=== PATIENT | female | born 1945 | race Caucasian/White ===

== ENCOUNTER 2019-08-05 16:57 | Emergency (ER) | payer MEDICARE, OTHER ==
--- NOTE | 2019-08-05 17:54 | EDM.PDOC ---
ED HPI GENERAL MEDICAL PROBLEM - General Chief Complaint: General Stated Complaint: FALL/WRIST PAIN Time Seen by Provider: 08/05/19 17:54 Source of Information: Reports: Patient History Limitations: Reports: No Limitations - History of Present Illness INITIAL COMMENTS - FREE TEXT/NARRATIVE: This patient is a 73 year old female that presents to the ER. Patient reports prior to arrival she tripped and fell backwards on her left wrist. Patient reports left wrist pain. Patient denies hitting head, loc, n, vision changes, or any other pain complaints. Onset: Today Onset Date: 08/05/19 Duration: Hour(s): (1) Location: Reports: Upper Extremity, Left Front/Back Body Image: 1 - obvious deromity Severity: Moderate Improves with: Reports: None Worsens with: Reports: None Context: Reports: Trauma Associated Symptoms: Denies: Confusion - Related Data Allergies Allergy/AdvReac Type Severity Reaction Status Date / Time aspirin Allergy Stomach Verified 08/05/19 17:28 Ache butorphanol [From Stadol] Allergy Tachycardia Verified 08/05/19 17:28 Cephalosporins Allergy Hives Verified 08/05/19 17:55 ciprofloxacin [From Cipro] Allergy Hives Verified 08/05/19 17:28 codeine Allergy Tachycardia Verified 08/05/19 17:28 ketorolac [From Toradol] Allergy Tachycardia Verified 08/05/19 17:28 meperidine [From Demerol] Allergy Stomach Verified 08/05/19 17:28 Ache Opioids - Morphine Analogues Allergy Stomach Verified 08/05/19 17:28 Upset opium (anthroposophic) Allergy Hives Verified 08/05/19 17:55 Penicillins Allergy Hives Verified 08/05/19 17:28 Quinolones Allergy Hives Verified 08/05/19 17:55 salicylates Allergy Hives Verified 08/05/19 17:55 Home Meds: Home Meds Azithromycin 500 mg PO ASDIRECTED 08/05/19 [History] Butalb/Acetaminophen/Caffeine [Tomosh-Vaayzzhy-Hjec 50-300-40] 1 each PO DAILY PRN 08/05/19 [History] Cyclobenzaprine [Flexeril] 10 mg PO DAILY PRN 08/05/19 [History] Levothyroxine 75 mcg PO ACBREAKFAST 08/05/19 [History] Losartan [Cozaar] 25 mg PO DAILY 08/05/19 [History] Omeprazole Magnesium [Prilosec Otc] 20 mg PO BID 08/05/19 [History] Sucralfate 1 gm PO QID 08/05/19 [History] Sulfamethoxazole/Trimethoprim [Bactrim Ds Tablet] 1 tab PO ASDIRECTED 08/05/19 [ History] azaTHIOprine [Imuran] 50 mg PO BID 08/05/19 [History] predniSONE [Prednisone] 25 mg PO DAILY 08/05/19 [History] Past Medical History Cardiovascular History: Reports: Hypertension Musculoskeletal History: Reports: RA Neurological History: Reports: Migraines Endocrine/Metabolic History: Reports: Hypothyroidism Social & Family History - Tobacco Use Smoking Status *Q: Former Smoker Used Tobacco, but Quit: Yes Month/Year Tobacco Last Used: 42 - Caffeine Use Caffeine Use: Reports: Coffee - Recreational Drug Use Recreational Drug Use: No ED ROS GENERAL - Review of Systems Review Of Systems: See Below Constitutional: Reports: No Symptoms HEENT: Reports: No Symptoms Respiratory: Reports: No Symptoms Cardiovascular: Reports: No Symptoms GI/Abdominal: Reports: No Symptoms. Denies: Nausea, Vomiting Musculoskeletal: Reports: Joint Pain (left wrist) Skin: Reports: No Symptoms Neurological: Reports: No Symptoms ED EXAM, GENERAL - Physical Exam Exam: See Below Exam Limited By: No Limitations General Appearance: Alert, WD/WN, No Apparent Distress Respiratory/Chest: No Respiratory Distress, Lungs Clear, Normal Breath Sounds, No Accessory Muscle Use Cardiovascular: Normal Peripheral Pulses, Regular Rate, Rhythm, No Edema, No Gallop, No JVD, No Murmur, No Rub Peripheral Pulses: 2+: Radial (L), Radial (R) Extremities: Limited Range of Motion (left wrist), Other (left wrist deformity, pain, tenderness, swelling. Decreased ROM due to pain. Pulses +2, cap refill <2 sec, sensory intact. Neurovascular intact. ) Neurological: Alert, Oriented Psychiatric: Normal Affect, Normal Mood Course - Vital Signs Last Recorded V/S: Last Vital Signs Temp 98.3 F 08/05/19 17:01 Pulse 100 08/05/19 17:01 Resp 20 08/05/19 17:01 BP 166/85 H 08/05/19 18:00 Pulse Ox 98 08/05/19 17:01 - Orders/Labs/Meds Orders: Active Orders 24 hr Category Date Time Status Wrist Comp Min 3V Lt [CR] Stat Exams 08/05/19 17:17 Taken - Radiology Interpretation Free Text/Narrative:: Left Wrist: Left distal radial fracture. - Re-Assessments/Exams Free Text/Narrative Re-Assessment/Exam: 08/05/19 18:32 Discussed patient with orthopedic Dr. Willard at [facility]. He will see Thursday. Departure - Departure Time of Disposition: 18:32 Disposition: Home, Self-Care 01 Condition: Fair Clinical Impression: Left wrist fracture Qualifiers: Encounter type: initial encounter Fracture type: closed Qualified Code(s): S62.102A - Fracture of unspecified carpal bone, left wrist, initial encounter for closed fracture - Discharge Information *PRESCRIPTION DRUG MONITORING PROGRAM REVIEWED*: No *COPY OF PRESCRIPTION DRUG MONITORING REPORT IN PATIENT JOE: No Instructions: Cast or Splint Care, Adult, [id number], Wrist Fracture Treated With Immobilization Referrals: Lauro Gregg MD [Primary Care Provider] - Forms: ED Department Discharge Additional Instructions: Followup with orthopedic [facility] Dr. Willard: [phone]: Thursday morning call. Will see you afternoon after 1pm with appointment Followup with primary care provider as needed Return to the ER for worsening of condition or any emergent concerns Rest Ice Elevate Arm sling as needed Sepsis Event Note - Evaluation Sepsis Screening Result: No Definite Risk - Focused Exam Vital Signs: Vital Signs Temp Pulse Resp BP Pulse Ox 08/05/19 18:00 166/85 H 08/05/19 17:55 179/90 H 08/05/19 17:01 98.3 F 100 20 175/111 H 98 Date Exam was Performed: 08/05/19 Time Exam was Performed: 18:31 - My Orders Last 24 Hours: My Active Orders 08/05/19 17:17 Wrist Comp Min 3V Lt [CR] Stat - Assessment/Plan Last 24 Hours: My Active Orders 08/05/19 17:17 Wrist Comp Min 3V Lt [CR] Stat Plan: PLEASE SEE RN NOTE FOR PFSH.
== END 2019-08-05 18:45 | disposition home or self-care (01) ==
LOC: CC.ED 16:57
DX: S62.102A Fracture of unspecified carpal bone, left wrist, initial encounter for closed fracture (principal); I10 Essential (primary) hypertension; E03.9 Hypothyroidism, unspecified; Z87.891 Personal history of nicotine dependence; Z88.6 Allergy status to analgesic agent; Z88.8 Allergy status to other drugs, medicaments and biological substances; Z88.1 Allergy status to other antibiotic agents; Z88.5 Allergy status to narcotic agent; Z88.0 Allergy status to penicillin; Z88.3 Allergy status to other anti-infective agents; Z79.899 Other long term (current) drug therapy; Z79.890 Hormone replacement therapy; W01.0XXA Fall on same level from slipping, tripping and stumbling without subsequent striking against object, initial encounter
CPT/HCPCS: 73110-LT; 99283; 99283-25

== ENCOUNTER 2020-05-20 20:49 | Inpatient (IN) | payer MEDICARE, OTHER ==
--- NOTE | 2020-05-20 21:43 | EDM.PDOC ---
ED HPI GENERAL MEDICAL PROBLEM - General Chief Complaint: Lower Extremity Injury/Pain Stated Complaint: R) hip pain s/p fall Time Seen by Provider: 05/20/20 20:51 Source of Information: Reports: Patient History Limitations: Reports: No Limitations - History of Present Illness INITIAL COMMENTS - FREE TEXT/NARRATIVE: Helen is a 74 year old female who presents to ER with complaints of right pelvic pain. Fell yesterday in the garage after tripping over a rug. Did require assistance from a family friend to get off the floor. Was assisted in the house and refused to come in at that time as felt the hip pain was from muscle spasms. Has been taking her flexeril frequently since it happened but the pain has persisted and she has had difficulty getting out of the chair and off the toilet as she has much pain with weight bearing. States pain is a 4 at rest but a 10 with movement. Patient has history of interstitial lung disease. Was hospitalized in March for respiratory distress. Is currently on nebulizer treatments and oxygen to control that. History of RA and OA. Is on infusions for her rheumatoid arthritis. Onset: Gradual Duration: Day(s): Location: Reports: Lower Extremity, Right Quality: Reports: Ache Severity: Severe Improves with: Reports: Rest Worsens with: Reports: Movement Context: Reports: Trauma Associated Symptoms: Reports: Shortness of Breath (chronic). Denies: Confusion, Chest Pain, Cough, Fever/Chills, Headaches, Loss of Appetite, Malaise, Nausea/Vomiting (chronic shortness of breath) Treatments JEWELRY REPAIRER: Reports: Other Medication(s) Other Treatments JEWELRY REPAIRER: flexeril Right Hip Pain Score (Numeric/FACES): 4 - Related Data Allergies Allergy/AdvReac Type Severity Reaction Status Date / Time aspirin Allergy Stomach Verified 05/20/20 21:03 Ache butorphanol [From Stadol] Allergy Tachycardia Verified 05/20/20 21:03 Cephalosporins Allergy Hives Verified 05/20/20 21:03 ciprofloxacin [From Cipro] Allergy Hives Verified 05/20/20 21:03 codeine Allergy Tachycardia Verified 05/20/20 21:03 ketorolac [From Toradol] Allergy Tachycardia Verified 05/20/20 21:03 meperidine [From Demerol] Allergy Stomach Verified 05/20/20 21:03 Ache Opioids - Morphine Analogues Allergy Stomach Verified 05/20/20 21:03 Upset opium (anthroposophic) Allergy Hives Verified 05/20/20 21:03 Penicillins Allergy Hives Verified 05/20/20 21:03 Quinolones Allergy Hives Verified 05/20/20 21:03 salicylates Allergy Hives Verified 05/20/20 21:03 Home Meds: Home Meds Azithromycin 500 mg PO MOWEFR 08/05/19 [History] Butalb/Acetaminophen/Caffeine [Epvqgl-Vwuocwwo-Bhbg 50-300-40] 1 each PO TID PRN 08/05/19 [History] Cyclobenzaprine [Flexeril] 10 mg PO DAILY PRN 08/05/19 [History] Levothyroxine 75 mcg PO ACBREAKFAST 08/05/19 [History] Losartan [Cozaar] 25 mg PO DAILY 08/05/19 [History] Omeprazole Magnesium [Prilosec Otc] 40 mg PO BID 08/05/19 [History] Sulfamethoxazole/Trimethoprim [Bactrim Ds Tablet] 1 tab PO MOWEFR 08/05/19 [History] predniSONE [Prednisone] 40 mg PO DAILY 08/05/19 [History] Albuterol/Ipratropium [DuoNeb 3.0-0.5 MG/3 ML] 1 inh INH Q4H PRN 05/20/20 [History] Albuterol/Ipratropium [DuoNeb 3.0-0.5 MG/3 ML] 1 inh INH QID 05/20/20 [History] Bifidobacterium Infantis [Align] 10.5 mg PO BID 05/20/20 [History] Budesonide [Pulmicort] 1 inh PO BID 05/20/20 [History] Furosemide 20 mg PO DAILY PRN 05/20/20 [History] amLODIPine [Norvasc] 5 mg PO DAILY 05/20/20 [History] Past Medical History Cardiovascular History: Reports: Hypertension Genitourinary History: Reports: Other (See Below) Other Genitourinary History: kidney surgery TUBE WASHER History: Reports: Other (See Below) Other TUBE WASHER History: ovarian cysts x2 Musculoskeletal History: Reports: RA Other Musculoskeletal History: RA in lungs Neurological History: Reports: Migraines Endocrine/Metabolic History: Reports: Hypothyroidism - Past Surgical History HEENT Surgical History: Reports: Adenoidectomy, Tonsillectomy GI Surgical History: Reports: Cholecystectomy Social & Family History - Tobacco Use Tobacco Use Status *Q: Former Tobacco User Used Tobacco, but Quit: Yes Month/Year Tobacco Last Used: 48y.o - Caffeine Use Caffeine Use: Reports: Tea Review of Systems - Review of Systems Review Of Systems: See Below Constitutional: Reports: Weakness. Denies: Chills, Diaphoresis, Fever Eyes: Reports: No Symptoms Ears: Denies: Dizziness Nose: Reports: No Symptoms Mouth/Throat: Reports: Other (dry mouth) Respiratory: Reports: Shortness of Breath Cardiovascular: Denies: Chest Pain, Palpitations, Syncope GI/Abdominal: Denies: Abdominal Pain, Nausea, Vomiting Genitourinary: Reports: No Symptoms Musculoskeletal: Reports: Leg Pain, Joint Pain Skin: Reports: No Symptoms Neurological: Reports: No Symptoms ED EXAM, GENERAL - Physical Exam Exam: See Below Exam Limited By: No Limitations General Appearance: Alert, WD/WN, No Apparent Distress Ears: Normal External Exam, Normal TMs Nose: Normal Inspection, Normal Mucosa, No Blood Throat/Mouth: Normal Inspection, Other (mucous membranes are dry) Head: Normocephalic Neck: Normal Inspection, Supple, Non-Tender Respiratory/Chest: No Respiratory Distress, Lungs Clear, Normal Breath Sounds Cardiovascular: Regular Rate, Rhythm GI/Abdominal: Normal Bowel Sounds, Soft, Tender (RLQ; patient relates likely related to her groin pain) Extremities: Normal Inspection, Leg Pain, Limited Range of Motion, Other (pain to right pelvis/groin with palpation. Limited range of motion with right hip) Neurological: Alert, Oriented Skin Exam: Warm, Dry Course - Vital Signs Last Recorded V/S: Last Vital Signs Temp 98.7 F 05/20/20 20:51 Pulse 96 05/20/20 20:51 Resp 18 05/20/20 20:51 BP 161/95 H 05/20/20 20:51 Pulse Ox 97 05/20/20 20:51 - Orders/Labs/Meds Orders: Active Orders 24 hr Category Date Time Status Pelvis wo Cont [CT] Routine Exams 05/20/20 Taken Labs: Laboratory Tests 05/20/20 Range/Units 21:30 SARS CoV-2 RNA Rapid BHARGAV Negative (NEGATIVE) - Re-Assessments/Exams Free Text/Narrative Re-Assessment/Exam: 05/20/20 21:15- CT scan shows right pelvic fracture, minimal displacement. Appears stable. Advised patient of such. Await official radiology report 2144- Report received from radiology. Has inferior and superior pelvic ring fracture, minimally displaced. Small hematoma present. Departure - Departure Time of Disposition: 21:52 Disposition: Admitted As Inpatient 67 Condition: Fair Clinical Impression: Fracture of pelvis - Discharge Information *PRESCRIPTION DRUG MONITORING PROGRAM REVIEWED*: No *COPY OF PRESCRIPTION DRUG MONITORING REPORT IN PATIENT JOE: No Sepsis Event Note (ED) - Evaluation Sepsis Screening Result: No Definite Risk - Focused Exam Vital Signs: Vital Signs Temp Pulse Resp BP Pulse Ox 05/20/20 20:51 98.7 F 96 18 161/95 H 97 - Problem List & Annotations (1) Fracture of pelvis SNOMED Code(s): 31889316 Code(s): S32.9XXA - FRACTURE OF UNSP PARTS OF LUMBOSACRAL SPINE AND PELVIS, INIT Status: Acute Priority: High Current Visit: No (2) Interstitial lung disease SNOMED Code(s): 027776610 Code(s): J84.9 - INTERSTITIAL PULMONARY DISEASE, UNSPECIFIED Status: Chronic Priority: Medium Current Visit: No - Problem List Review Problem List Initiated/Reviewed/Updated: Yes - My Orders Last 24 Hours: My Active Orders 05/20/20 Pelvis wo Cont [CT] Routine - Assessment/Plan Admission H&P: Please use this note as an admission H&P Last 24 Hours: My Active Orders 05/20/20 Pelvis wo Cont [CT] Routine Assessment:: Pelvic Ring Fracture Plan: Admit inpatient for pain control. Physical therapy. Does have history of interstitial lung disease, chronically on oxygen and nebulizer treatments. COVID testing done and is negative.
[2020-05-20] MEDS ORDERED: fentaNYL 100 MCG/2 ML SDV IVPUSH SCH (22:15)
[2020-05-20] MEDS ORDERED: Polyethylene Glycol 3350 Powder 17 GM Packet PO PRN (22:15)
[2020-05-20] MEDS ORDERED: Ondansetron 4 MG Tab.DIS PO PRN (22:15)
[2020-05-20] MEDS ORDERED: Sodium Chloride 0.9% 10 ML Syringe FLUSH PRN (22:15)
[2020-05-20] MEDS ORDERED: [UNRECOGNIZED DRUG - OTHER] PO PRN (22:16)
[2020-05-20] MEDS ORDERED: ACETAMINOPHEN PO PRN (22:16)
[2020-05-20] MEDS ORDERED: BUTALB PO PRN (22:16)
[2020-05-20] MEDS ORDERED: CAFFEINE PO PRN (22:16)
[2020-05-20] MEDS ORDERED: Furosemide 20 MG Tab PO PRN (22:16)
[2020-05-20] MEDS ORDERED: Albuterol/Ipratropium 3.0-0.5 MG/3 ML Neb Soln INH PRN (22:16)
[2020-05-20] MEDS ORDERED: Enoxaparin 40 MG/0.4 ML Syringe SUBCUT ONE (23:00)
[2020-05-20] MEDS: fentaNYL 100 MCG/2 ML SDV IVPUSH SCH (23:25)
[2020-05-20] MEDS: Acetaminophen 325 MG Tab PO PRN (23:43)
[2020-05-20] MEDS: Cyclobenzaprine 10 MG Tab PO PRN (23:43)
[2020-05-21] MEDS: Acetaminophen 325 MG Tab PO PRN ×2 (05:50→12:21)
[2020-05-21] MEDS: Cyclobenzaprine 10 MG Tab PO PRN ×2 (05:51→12:21)
[2020-05-21] MEDS: Levothyroxine 50 MCG Tab PO SCH (06:04)
[2020-05-21 07:57] LABS: CHLORIDE,CL 99 mEq/L (98-106); SODIUM,NA 135 mEq/L (136-145)
[2020-05-21] MEDS: Losartan 25 MG Tab PO SCH (08:44)
[2020-05-21] MEDS: predniSONE 20 MG Tab PO SCH (08:45)
[2020-05-21] MEDS: Pantoprazole 40 MG Tab.CR PO SCH ×2 (08:45→19:26)
[2020-05-21] MEDS: Budesonide 0.5 MG/2 ML Neb Susp INH SCH ×2 (08:45→19:26)
[2020-05-21] MEDS: Azithromycin 250 MG Tab PO SCH (08:45)
[2020-05-21] MEDS: Albuterol/Ipratropium 3.0-0.5 MG/3 ML Neb Soln INH SCH ×4 (08:45→19:26)
[2020-05-21] MEDS: amLODIPine 10 MG Tab PO SCH (08:46)
[2020-05-21] MEDS: fentaNYL 100 MCG/2 ML SDV IVPUSH SCH ×2 (08:47→19:30)
[2020-05-21] MEDS: Sulfamethoxazole/Trimethoprim 800-160 MG Tab PO SCH (08:48)
--- NOTE | 2020-05-21 09:15 | PCM.PN ---
- General Info Date of Service: 05/21/20 Admission Dx/Problem (Free Text): Right Pelvic Ring Fracture Functional Status: Reports: Pain Controlled, Tolerating Diet. Denies: Ambulating - Review of Systems General: Reports: Weakness. Denies: Fever, Fatigue, Malaise, Chills HEENT: Reports: No Symptoms Pulmonary: Denies: Shortness of Breath, Cough Cardiovascular: Denies: Chest Pain, Edema, Lightheadedness Gastrointestinal: Reports: No Symptoms Genitourinary: Reports: No Symptoms Musculoskeletal: Reports: Leg Pain, Joint Pain (right pelvic pain) Skin: Reports: No Symptoms Neurological: Reports: No Symptoms Psychiatric: Reports: No Symptoms - Patient Data Vitals - Most Recent: Last Vital Signs Temp 96.7 F L 05/21/20 04:00 Pulse 80 05/21/20 04:00 Resp 18 05/21/20 04:00 BP 144/68 H 05/21/20 08:46 Pulse Ox 98 05/21/20 04:00 Weight - Most Recent: 151 lb Lab Results Last 24 Hours: Laboratory Results - last 24 hr 05/20/20 05/21/20 05/21/20 Range/Units 21:30 07:05 07:05 WBC 11.2 H (5.0-10.0) 10^3/uL RBC 3.50 L (4.00-5.50) 10^6/uL Hgb 11.4 L (12.0-16.0) g/dL Hct 34.3 L (37.0-47.0) % MCV 98.0 H (82.0-94.0) fL MCH 32.6 H (27.0-32.0) pg MCHC 33.2 (33.0-38.0) g/dL RDW Coeff of Mg 13.6 (11.0-15.0) % Plt Count 260 (150-400) 10^3/uL Neut % (Auto) 47.5 (35-85) % Lymph % (Auto) 35.1 (10-55) % Gray % (Auto) 16.5 H (0-16) % Eos % (Auto) 0.6 (0-5) % Baso % (Auto) 0.3 (0-3) % Neut # (Auto) 5.31 (1.80-7.00) 10^3/uL Lymph # (Auto) 3.92 (1.00-4.80) 10^3/uL Gray # (Auto) 1.85 H (0.00-0.80) 10^3/uL Eos # (Auto) 0.07 (0.00-0.45) 10^3/uL Baso # (Auto) 0.03 10^3/uL Sodium 135 L (136-145) mEq/L Potassium 4.6 (3.5-5.0) mEq/L Chloride 99 (98-106) mEq/L Carbon Dioxide 30 (21-32) mmol/L BUN 15 (7-18) mg/dL Creatinine 0.9 (0.6-1.0) mg/dL Est Cr Clr Drug Dosing 46.05 mL/min Estimated GFR (MDRD) > 60 (>=60) mL/min Glucose 86 (75-99) mg/dL Calcium 8.5 (8.4-10.1) mg/dL C-Reactive Protein 4.5 H (0.2-0.8) mg/dL SARS CoV-2 RNA Rapid BHARGAV Negative (NEGATIVE) Med Orders - Current: Current Medications Acetaminophen (Tylenol) 650 mg PO Q4H PRN PRN Reason: Pain (Mild 1-3)/fever Last Admin: 05/21/20 05:50 Dose: 650 mg Documented by: Albuterol/Ipratropium (Duoneb 3.0-0.5 Mg/3 Ml) 3 ml INH Q4H PRN PRN Reason: Shortness of Breath Albuterol/Ipratropium (Duoneb 3.0-0.5 Mg/3 Ml) 3 ml INH QIDRT [facility] Last Admin: 05/21/20 08:45 Dose: 3 ml Documented by: Amlodipine Besylate (Norvasc) 5 mg PO DAILY [facility] Last Admin: 05/21/20 08:46 Dose: 5 mg Documented by: Azithromycin (Zithromax) 500 mg PO MoWeFr@0900 [facility] Last Admin: 05/21/20 08:45 Dose: 500 mg Documented by: Budesonide (Pulmicort) 0.25 mg INH BID [facility] Last Admin: 05/21/20 08:45 Dose: 0.25 mg Documented by: Cyclobenzaprine HCl (Flexeril) 10 mg PO Q6H PRN PRN Reason: Spasms Enoxaparin Sodium (Lovenox) 40 mg SUBCUT Q24H [facility] Fentanyl (Sublimaze) 25 mcg IVPUSH Q12H [facility] Last Admin: 05/21/20 08:47 Dose: 25 mcg Documented by: Furosemide (Lasix) 20 mg PO DAILY PRN PRN Reason: Edema Levothyroxine Sodium (Synthroid) 75 mcg PO ACBREAKFAST [facility] Last Admin: 05/21/20 06:04 Dose: 75 mcg Documented by: Losartan Potassium (Cozaar) 25 mg PO DAILY [facility] Last Admin: 05/21/20 08:44 Dose: 25 mg Documented by: Non-Formulary Medication (Bifidobacterium Infantis [Align]) 10.5 mg PO BID [facility] Non-Formulary Medication (Butalb/Acetaminophen/Caffeine [Kwamaq-Ahessepd-Yhdt 50-300-40]) 1 each PO TID PRN PRN Reason: Headache Ondansetron HCl (Zofran Odt) 4 mg PO Q4H PRN PRN Reason: nausea, able to take PO Pantoprazole Sodium (Protonix) 40 mg PO BID [facility] Last Admin: 05/21/20 08:45 Dose: 40 mg Documented by: Polyethylene Glycol (Miralax) 17 gm PO DAILY PRN PRN Reason: Constipation Prednisone (Prednisone) 40 mg PO DAILY [facility] Last Admin: 05/21/20 08:45 Dose: 40 mg Documented by: Sodium Chloride (Saline Flush) 10 ml FLUSH ASDIRECTED PRN PRN Reason: Keep Vein Open Trimethoprim/Sulfamethoxazole (Septra Ds) 1 tab PO MoWeFr@0900 [facility] Last Admin: 05/21/20 08:48 Dose: 1 tab Documented by: Discontinued Medications Cyclobenzaprine HCl (Flexeril) 10 mg PO DAILY PRN PRN Reason: Spasms Last Admin: 05/21/20 05:51 Dose: 10 mg Documented by: Enoxaparin Sodium (Lovenox) 40 mg SUBCUT ONETIME ONE Stop: 05/20/20 23:01 Last Admin: 05/21/20 00:42 Dose: Not Given Documented by: Fentanyl (Sublimaze) 25 mcg IVPUSH Q12H [facility] Last Admin: 05/20/20 23:45 Dose: Not Given Documented by: - Exam General: Alert, Oriented HEENT: Mucous Membr. Moist/[place] Neck: Supple Lungs: Clear to Auscultation, Normal Respiratory Effort Cardiovascular: Regular Rate, Regular Rhythm GI/Abdominal Exam: Normal Bowel Sounds, Soft, Non-Tender Extremities: Leg Pain, Other (pelvic pain) Skin: Warm, Dry Neurological: No New Focal Deficit Sepsis Event Note - Evaluation Sepsis Screening Result: No Definite Risk - Focused Exam Vital Signs: Vital Signs Temp Pulse Resp BP BP Pulse Ox 05/21/20 08:46 144/68 H 05/21/20 08:44 144/68 H 05/21/20 04:00 96.7 F L 80 18 142/64 H 98 05/20/20 22:15 97.1 F 90 20 165/70 H 98 - Problem List & Annotations (1) Fracture of pelvis SNOMED Code(s): 28887844 Code(s): S32.9XXA - FRACTURE OF UNSP PARTS OF LUMBOSACRAL SPINE AND PELVIS, INIT Status: Acute Priority: High Current Visit: Yes (2) Interstitial lung disease SNOMED Code(s): 455591400 Code(s): J84.9 - INTERSTITIAL PULMONARY DISEASE, UNSPECIFIED Status: Chronic Priority: Medium Current Visit: Yes - Problem List Review Problem List Initiated/Reviewed/Updated: Yes - My Orders Last 24 Hours: My Active Orders 05/20/20 22:09 Resuscitation Status Routine 05/20/20 22:15 Acetaminophen [TylenoL] 650 mg PO Q4H PRN Enoxaparin [Lovenox] 40 mg SUBCUT Q24H Ondansetron [Zofran ODT] 4 mg PO Q4H PRN Sodium Chloride 0.9% [Saline Flush] 10 ml FLUSH ASDIRECTED PRN polyethylene glycoL 3350 [MiraLAX] 17 gm PO DAILY PRN 05/20/20 22:15 Patient Status [ADT] Routine Bedrest Bedside Commode [RC] .PRN Oxygen Therapy [RC] 2355 Vital Signs [RC] 0000,0400,0800,1200,1600,2000 PT Evaluation and Treatment [CONS] Routine Saline Lock Insert [OM.PC] Routine 05/20/20 22:16 Albuterol/Ipratropium [DuoNeb 3.0-0.5 MG/3 ML] 3 ml INH Q4H PRN Butalb/Acetaminophen/Caffeine [Dthgxe-Udzmssou-Jjkb 50-300-40] 1 each PO TID PRN Furosemide [Lasix] 20 mg PO DAILY PRN 05/20/20 22:17 RT Aerosol Therapy [RC] 0800,1200,1600,2000 05/21/20 06:01 Cyclobenzaprine [Flexeril] 10 mg PO Q6H PRN 05/21/20 07:00 Levothyroxine [Synthroid] 75 mcg PO ACBREAKFAST 05/21/20 08:00 Albuterol/Ipratropium [DuoNeb 3.0-0.5 MG/3 ML] 3 ml INH QIDRT Bifidobacterium Infantis [Align] 10.5 mg PO BID Budesonide [Pulmicort] 0.25 mg INH BID Losartan [Cozaar] 25 mg PO DAILY Pantoprazole [ProTONIX] 40 mg PO BID amLODIPine [Norvasc] 5 mg PO DAILY predniSONE 40 mg PO DAILY 05/21/20 09:00 Azithromycin [Zithromax] 500 mg PO MoWeFr@0900 Sulfamethoxazole/Trimethoprim [Septra DS] 1 tab PO MoWeFr@0900 - Assessment Assessment:: Right Pelvic Ring Fracture - Plan Plan:: Patient is resting comfortably this am. States pain is tolerable at rest. Is receiving pain meds routinely. Labs this am are stable. Blood pressure stable. Will have physical therapy see patient this am for transferring/use of walker. Continue IV pain meds as patient has difficulty with oral pain meds due to multiple allergies.
[2020-05-21] MEDS: Enoxaparin 40 MG/0.4 ML Syringe SUBCUT SCH (12:21)
[2020-05-21] MEDS: BIFIDOBACTERIUM INFANTIS 10.5 MG PO SCH (20:13)
[2020-05-21] MEDS: [UNRECOGNIZED DRUG - OTHER] PO SCH (20:13)
[2020-05-22] MEDS: Acetaminophen 325 MG Tab PO PRN ×3 (00:18→16:58)
[2020-05-22] MEDS: Cyclobenzaprine 10 MG Tab PO PRN ×3 (00:18→16:59)
[2020-05-22] MEDS: Levothyroxine 50 MCG Tab PO SCH (06:24)
[2020-05-22] MEDS: [UNRECOGNIZED DRUG - OTHER] PO SCH ×2 (07:29→19:32)
[2020-05-22] MEDS: Losartan 25 MG Tab PO SCH (07:29)
[2020-05-22] MEDS: Budesonide 0.5 MG/2 ML Neb Susp INH SCH ×2 (07:29→19:32)
[2020-05-22] MEDS: Albuterol/Ipratropium 3.0-0.5 MG/3 ML Neb Soln INH SCH ×4 (07:29→19:32)
[2020-05-22] MEDS: BIFIDOBACTERIUM INFANTIS 10.5 MG PO SCH ×2 (07:29→19:32)
[2020-05-22] MEDS: Pantoprazole 40 MG Tab.CR PO SCH ×2 (07:34→19:31)
[2020-05-22] MEDS: amLODIPine 10 MG Tab PO SCH (07:34)
[2020-05-22] MEDS: predniSONE 20 MG Tab PO SCH (07:38)
[2020-05-22] MEDS: fentaNYL 100 MCG/2 ML SDV IVPUSH SCH ×2 (07:40→19:33)
[2020-05-22] MEDS: Enoxaparin 40 MG/0.4 ML Syringe SUBCUT SCH (11:36)
--- NOTE | 2020-05-22 13:15 | PCM.PN ---
- General Info Date of Service: 05/22/20 Admission Dx/Problem (Free Text): Pelvic fracture Functional Status: Reports: Pain Controlled, Tolerating Diet, Urinating - Review of Systems General: Reports: No Symptoms HEENT: Reports: No Symptoms Pulmonary: Reports: No Symptoms Cardiovascular: Reports: No Symptoms Gastrointestinal: Reports: No Symptoms Genitourinary: Reports: No Symptoms Musculoskeletal: Reports: Other (pelvic discomfort. ) Neurological: Reports: No Symptoms Psychiatric: Reports: No Symptoms - Patient Data Vitals - Most Recent: Last Vital Signs Temp 98.0 F 05/22/20 11:54 Pulse 95 05/22/20 11:54 Resp 16 05/22/20 11:54 BP 138/70 05/22/20 11:54 Pulse Ox 96 05/22/20 11:54 Weight - Most Recent: 151 lb Med Orders - Current: Current Medications Acetaminophen (Tylenol) 650 mg PO Q4H PRN PRN Reason: Pain (Mild 1-3)/fever Last Admin: 05/22/20 10:12 Dose: 650 mg Documented by: Albuterol/Ipratropium (Duoneb 3.0-0.5 Mg/3 Ml) 3 ml INH Q4H PRN PRN Reason: Shortness of Breath Albuterol/Ipratropium (Duoneb 3.0-0.5 Mg/3 Ml) 3 ml INH QIDRT [facility] Last Admin: 05/22/20 11:36 Dose: 3 ml Documented by: Amlodipine Besylate (Norvasc) 5 mg PO DAILY [facility] Last Admin: 05/22/20 07:34 Dose: 5 mg Documented by: Azithromycin (Zithromax) 500 mg PO MoWeFr@0900 [facility] Last Admin: 05/21/20 08:45 Dose: 500 mg Documented by: Budesonide (Pulmicort) 0.25 mg INH BID [facility] Last Admin: 05/22/20 07:29 Dose: 0.25 mg Documented by: Cyclobenzaprine HCl (Flexeril) 10 mg PO TID PRN PRN Reason: Spasms Last Admin: 05/22/20 10:12 Dose: 10 mg Documented by: Enoxaparin Sodium (Lovenox) 40 mg SUBCUT Q24H [facility] Last Admin: 05/22/20 11:36 Dose: 40 mg Documented by: Fentanyl (Sublimaze) 25 mcg IVPUSH Q12H [facility] Last Admin: 05/22/20 07:40 Dose: 25 mcg Documented by: Furosemide (Lasix) 20 mg PO DAILY PRN PRN Reason: Edema Levothyroxine Sodium (Synthroid) 75 mcg PO ACBREAKFAST [facility] Last Admin: 05/22/20 06:24 Dose: 75 mcg Documented by: Losartan Potassium (Cozaar) 25 mg PO DAILY [facility] Last Admin: 05/22/20 07:29 Dose: 25 mg Documented by: Bifidobacterium Infantis [Align] 10. 5 Mg Probiotic Ptom 0 mg PO BID [facility] Last Admin: 05/22/20 07:29 Dose: 10.5 mg Documented by: Ondansetron HCl (Zofran Odt) 4 mg PO Q4H PRN PRN Reason: nausea, able to take PO Pantoprazole Sodium (Protonix) 40 mg PO BID [facility] Last Admin: 05/22/20 07:34 Dose: 40 mg Documented by: Polyethylene Glycol (Miralax) 17 gm PO DAILY PRN PRN Reason: Constipation Prednisone (Prednisone) 40 mg PO DAILY [facility] Last Admin: 05/22/20 07:38 Dose: 40 mg Documented by: Sodium Chloride (Saline Flush) 10 ml FLUSH ASDIRECTED PRN PRN Reason: Keep Vein Open Trimethoprim/Sulfamethoxazole (Septra Ds) 1 tab PO MoWeFr@0900 [facility] Last Admin: 05/21/20 08:48 Dose: 1 tab Documented by: Discontinued Medications Cyclobenzaprine HCl (Flexeril) 10 mg PO DAILY PRN PRN Reason: Spasms Last Admin: 05/21/20 05:51 Dose: 10 mg Documented by: Enoxaparin Sodium (Lovenox) 40 mg SUBCUT ONETIME ONE Stop: 05/20/20 23:01 Last Admin: 05/21/20 00:42 Dose: Not Given Documented by: Fentanyl (Sublimaze) 25 mcg IVPUSH Q12H [facility] Last Admin: 05/20/20 23:45 Dose: Not Given Documented by: Non-Formulary Medication (Butalb/Acetaminophen/Caffeine [Hmqmjg-Sazhjkug-Tcgq 50-300-40]) 1 each PO TID PRN PRN Reason: Headache - Exam General: Alert, Oriented Lungs: Clear to Auscultation, Normal Respiratory Effort Cardiovascular: Regular Rate, Regular Rhythm GI/Abdominal Exam: Normal Bowel Sounds, Soft, Non-Tender, No Distention, Pelvis Stable Extremities: Normal Inspection, Non-Tender, No Pedal Edema. No: Limited Range of Motion Skin: Warm, Dry, Intact Psy/Mental Status: Alert, Normal Affect, Normal Mood Sepsis Event Note - Evaluation Sepsis Screening Result: No Definite Risk - Focused Exam Vital Signs: Vital Signs Temp Pulse Resp BP BP Pulse Ox 05/22/20 11:54 98.0 F 95 16 138/70 96 05/22/20 08:00 97.8 F 79 16 148/84 H 97 05/22/20 07:34 148/84 H 05/22/20 07:29 148/84 H 05/22/20 03:14 98 F 70 20 150/72 H 97 - Problem List & Annotations (1) Fracture of pelvis SNOMED Code(s): 16870024 Code(s): S32.9XXA - FRACTURE OF UNSP PARTS OF LUMBOSACRAL SPINE AND PELVIS, INIT Status: Acute Priority: High Current Visit: Yes - Problem List Review Problem List Initiated/Reviewed/Updated: Yes - Assessment Assessment:: Right Pelvic Ring Fracture - Plan Plan:: Helen is doing well today. Physical therapy has worked with Helen and overall she is doing really well. She has been doing exercised they have showed her and isn't having any discomfort at this time. Does have occasional muscle spasms but does feel the Flexeril and Tylenol is helping. Currently receiving IV pain medications scheduled and will try decreasing tomorrow to see how she tolerates it. Vital signs stable. Patient is resting comfortably this am. States pain is tolerable at rest. Is receiving pain meds routinely. Labs this am are stable. Blood pressure stable. Will have physical therapy see patient this am for transferring/use of walker. Continue IV pain meds as patient has difficulty with oral pain meds due to multiple allergies.
[2020-05-23] MEDS: Acetaminophen 325 MG Tab PO PRN ×2 (04:59→14:08)
[2020-05-23] MEDS: Cyclobenzaprine 10 MG Tab PO PRN ×2 (05:00→14:09)
[2020-05-23] MEDS: Levothyroxine 50 MCG Tab PO SCH (07:47)
[2020-05-23] MEDS: predniSONE 20 MG Tab PO SCH (07:48)
[2020-05-23] MEDS: amLODIPine 10 MG Tab PO SCH (07:49)
[2020-05-23] MEDS: Pantoprazole 40 MG Tab.CR PO SCH (07:50)
[2020-05-23] MEDS: Losartan 25 MG Tab PO SCH (07:50)
[2020-05-23] MEDS: Albuterol/Ipratropium 3.0-0.5 MG/3 ML Neb Soln INH SCH ×3 (07:51→17:02)
[2020-05-23] MEDS: [UNRECOGNIZED DRUG - OTHER] PO SCH (07:51)
[2020-05-23] MEDS: BIFIDOBACTERIUM INFANTIS 10.5 MG PO SCH (07:51)
[2020-05-23] MEDS: fentaNYL 100 MCG/2 ML SDV IVPUSH SCH (07:52)
[2020-05-23] MEDS: Budesonide 0.5 MG/2 ML Neb Susp INH SCH (08:00)
[2020-05-23] MEDS: Sulfamethoxazole/Trimethoprim 800-160 MG Tab PO SCH (08:00)
[2020-05-23] MEDS: Azithromycin 250 MG Tab PO SCH (08:00)
--- NOTE | 2020-05-23 10:10 | PCM.DCSUM1 ---
Discharge Summary - Hospital Course Free Text/Narrative:: Helen is a pleasant 74 yo female who was admitted to the hospital from the ED on 05/20/2020 after falling and sustaining a right pelvic ring fracture. She was admitted for pain control and physical therapy. Patient has had uneventful hospital stay. Pain has been well controlled with Flexeril and Tylenol. Was also getting scheduled IV pain medications. Labs have been stable. VSS on 3 L O2, which is patients baseline d/t underlying interstitial lung disease. She will be admitted to [facility], [place] for ongoing physical therapy and pain management, hopefully for short term. Patient will need to be able to climb stairs prior to discharge as she has stairs in her home. - Discharge Data Discharge Date: 05/23/20 Discharge Disposition: DC/Tfer W/I Hosp To [place] [id number] Condition: Good - Referral to Home Health Primary Care Physician: PCP Not In Area - Patient Summary/Data Consults: Consultations 05/20/20 22:15 PT Evaluation and Treatment [CONS] Routine - Patient Instructions Diet: Usual Diet as Tolerated Activity: As Tolerated - Discharge Plan *PRESCRIPTION DRUG MONITORING PROGRAM REVIEWED*: No *COPY OF PRESCRIPTION DRUG MONITORING REPORT IN PATIENT JOE: No Home Medications: Home Meds Azithromycin 500 mg PO MOWEFR 08/05/19 [History] Butalb/Acetaminophen/Caffeine [Ltkypw-Scwfhkmq-Coxm 50-300-40] 1 each PO TID PRN 08/05/19 [History] Cyclobenzaprine [Flexeril] 10 mg PO Q6H PRN 08/05/19 [History] Levothyroxine 75 mcg PO ACBREAKFAST 08/05/19 [History] Losartan [Cozaar] 25 mg PO DAILY 08/05/19 [History] Omeprazole Magnesium [Prilosec Otc] 40 mg PO BID 08/05/19 [History] Sulfamethoxazole/Trimethoprim [Bactrim Ds Tablet] 1 tab PO MOWEFR 08/05/19 [History] predniSONE [Prednisone] 40 mg PO DAILY 08/05/19 [History] Albuterol/Ipratropium [DuoNeb 3.0-0.5 MG/3 ML] 1 inh INH Q4H PRN 05/20/20 [History] Albuterol/Ipratropium [DuoNeb 3.0-0.5 MG/3 ML] 1 inh INH QID 10/25/20 [History] Bifidobacterium Infantis [Align] 10.5 mg PO BID 05/20/20 [History] Budesonide [Pulmicort] 1 inh PO BID 05/20/20 [History] Furosemide 20 mg PO DAILY PRN 05/20/20 [History] amLODIPine [Norvasc] 5 mg PO DAILY 05/20/20 [History] Forms: ED Department Discharge Referrals: PCP,Not In Area [Primary Care Provider] - - Discharge Summary/Plan Comment DC Time >30 min.: No - General Info Date of Service: 05/23/20 Admission Dx/Problem (Free Text: Pelvic fracture Subjective Update: Patient reports she is feeling well this morning. Pain has been well controlled. She is able to ambulate with walker but does have difficult time lifting leg off floor. Goal is to continue with PT to improve this and be able to climb steps prior to discharge home. She has no complaints this morning. Functional Status: Reports: Pain Controlled, Tolerating Diet, Ambulating, Urinating. Denies: New Symptoms - Review of Systems General: Reports: No Symptoms Pulmonary: Reports: Shortness of Breath, Cough Cardiovascular: Reports: Dyspnea on Exertion. Denies: Chest Pain, Orthopnea, Edema, Lightheadedness Gastrointestinal: Reports: No Symptoms Musculoskeletal: Reports: Leg Pain (right) Skin: Reports: No Symptoms Neurological: Reports: No Symptoms Psychiatric: Reports: No Symptoms - Patient Data Vitals - Most Recent: Last Vital Signs Temp 98.2 F 05/23/20 07:46 Pulse 78 05/23/20 07:46 Resp 16 05/23/20 07:46 BP 155/69 H 05/23/20 07:50 Pulse Ox 98 05/23/20 07:46 Weight - Most Recent: 151 lb Med Orders - Current: Current Medications Acetaminophen (Tylenol) 650 mg PO Q4H PRN PRN Reason: Pain (Mild 1-3)/fever Last Admin: 05/23/20 04:59 Dose: 650 mg Documented by: Albuterol/Ipratropium (Duoneb 3.0-0.5 Mg/3 Ml) 3 ml INH Q4H PRN PRN Reason: Shortness of Breath Albuterol/Ipratropium (Duoneb 3.0-0.5 Mg/3 Ml) 3 ml INH QIDRT [facility] Last Admin: 05/23/20 07:51 Dose: 3 ml Documented by: Amlodipine Besylate (Norvasc) 5 mg PO DAILY [facility] Last Admin: 05/23/20 07:49 Dose: 5 mg Documented by: Azithromycin (Zithromax) 500 mg PO MoWeFr@0900 [facility] Last Admin: 05/23/20 08:00 Dose: 500 mg Documented by: Budesonide (Pulmicort) 0.25 mg INH BID [facility] Last Admin: 05/23/20 08:00 Dose: 0.25 mg Documented by: Cyclobenzaprine HCl (Flexeril) 10 mg PO TID PRN PRN Reason: Spasms Last Admin: 05/23/20 05:00 Dose: 10 mg Documented by: Enoxaparin Sodium (Lovenox) 40 mg SUBCUT Q24H [facility] Last Admin: 05/22/20 11:36 Dose: 40 mg Documented by: Fentanyl (Sublimaze) 25 mcg IVPUSH Q12H [facility] Last Admin: 05/23/20 07:52 Dose: 25 mcg Documented by: Furosemide (Lasix) 20 mg PO DAILY PRN PRN Reason: Edema Levothyroxine Sodium (Synthroid) 75 mcg PO ACBREAKFAST [facility] Last Admin: 05/23/20 07:47 Dose: 75 mcg Documented by: Losartan Potassium (Cozaar) 25 mg PO DAILY [facility] Last Admin: 05/23/20 07:50 Dose: 25 mg Documented by: Bifidobacterium Infantis [Align] 10. 5 Mg Probiotic Ptom 0 mg PO BID [facility] Last Admin: 05/23/20 07:51 Dose: 10.5 mg Documented by: Ondansetron HCl (Zofran Odt) 4 mg PO Q4H PRN PRN Reason: nausea, able to take PO Pantoprazole Sodium (Protonix) 40 mg PO BID [facility] Last Admin: 05/23/20 07:50 Dose: 40 mg Documented by: Polyethylene Glycol (Miralax) 17 gm PO DAILY PRN PRN Reason: Constipation Prednisone (Prednisone) 40 mg PO DAILY [facility] Last Admin: 05/23/20 07:48 Dose: 40 mg Documented by: Sodium Chloride (Saline Flush) 10 ml FLUSH ASDIRECTED PRN PRN Reason: Keep Vein Open Trimethoprim/Sulfamethoxazole (Septra Ds) 1 tab PO MoWeFr@0900 [facility] Last Admin: 05/23/20 08:00 Dose: 1 tab Documented by: Discontinued Medications Cyclobenzaprine HCl (Flexeril) 10 mg PO DAILY PRN PRN Reason: Spasms Last Admin: 05/21/20 05:51 Dose: 10 mg Documented by: Enoxaparin Sodium (Lovenox) 40 mg SUBCUT ONETIME ONE Stop: 05/20/20 23:01 Last Admin: 05/21/20 00:42 Dose: Not Given Documented by: Fentanyl (Sublimaze) 25 mcg IVPUSH Q12H [facility] Last Admin: 05/20/20 23:45 Dose: Not Given Documented by: Non-Formulary Medication (Butalb/Acetaminophen/Caffeine [Finqir-Vefbifnk-Rbae 50-300-40]) 1 each PO TID PRN PRN Reason: Headache - Exam Quality Assessment: Reports: Supplemental Oxygen, DVT Prophylaxis General: Reports: Alert, Oriented, No Acute Distress Neck: Reports: Supple Lungs: Reports: Clear to Auscultation, Normal Respiratory Effort, Decreased Breath Sounds Cardiovascular: Reports: Regular Rate, Regular Rhythm GI/Abdominal Exam: Normal Bowel Sounds, Soft, Non-Tender, No Organomegaly, No Distention, No Abnormal Bruit, No Mass, Pelvis Stable Extremities: No Pedal Edema, Normal Capillary Refill, Limited Range of Motion (right hip), Other (mild tenderness with palpation of right groin) Skin: Reports: Warm, Dry, Intact Neurological: Reports: No New Focal Deficit Psy/Mental Status: Reports: Alert, Normal Affect, Normal Mood
[2020-05-23] MEDS: Enoxaparin 40 MG/0.4 ML Syringe SUBCUT SCH (14:10)
== END 2020-05-23 17:58 | disposition swing bed (61) | DRG 536 ==
LOC: CC.ED 20:49 → CC.MS 21:50 → UNDOADMIN 21:50 → CC.MS 22:08
PROVIDERS: ADMIT Physician Assistant Medical; ATTEND Family Medicine
DX: S32.9XXA Fracture of unspecified parts of lumbosacral spine and pelvis, initial encounter for closed fracture (principal); J84.9 Interstitial pulmonary disease, unspecified; Z20.828 Contact with and (suspected) exposure to other viral communicable diseases; M06.9 Rheumatoid arthritis, unspecified; E03.9 Hypothyroidism, unspecified; Z87.891 Personal history of nicotine dependence; Z88.6 Allergy status to analgesic agent; Z88.0 Allergy status to penicillin; Z88.1 Allergy status to other antibiotic agents; Z88.5 Allergy status to narcotic agent; Z88.8 Allergy status to other drugs, medicaments and biological substances; Z79.890 Hormone replacement therapy; I10 Essential (primary) hypertension; Z79.899 Other long term (current) drug therapy; Z79.52 Long term (current) use of systemic steroids; G43.909 Migraine, unspecified, not intractable, without status migrainosus; W01.0XXA Fall on same level from slipping, tripping and stumbling without subsequent striking against object, initial encounter; Y92.008 Other place in unspecified non-institutional (private) residence as the place of occurrence of the external cause
CPT/HCPCS: 72192; 99285; U0002; 36415; 80048; 85025; 86140; 94640; 97110-GP; 97116-GP; 97161-GP; A9270-GY; J1650; J3010; J7512; J7620-GY

== ENCOUNTER 2020-05-23 16:09 | Inpatient (IN) | payer MEDICARE, OTHER ==
[2020-05-23] MEDS ORDERED: Albuterol/Ipratropium 3.0-0.5 MG/3 ML Neb Soln INH PRN (20:36)
[2020-05-23] MEDS ORDERED: Furosemide 20 MG Tab PO PRN (20:36)
[2020-05-23] MEDS ORDERED: Sodium Chloride 0.9% 10 ML Syringe FLUSH PRN ×2 (20:36)
[2020-05-23] MEDS ORDERED: Polyethylene Glycol 3350 Powder 17 GM Packet PO PRN (20:36)
[2020-05-23] MEDS ORDERED: Ondansetron 4 MG Tab.DIS PO PRN (20:36)
[2020-05-23] MEDS: Cyclobenzaprine 10 MG Tab PO PRN (21:11)
[2020-05-23] MEDS: Nystatin Susp 100,000 Unit/ML 5 ML UD Cup PO SCH (21:11)
[2020-05-23] MEDS: Albuterol/Ipratropium 3.0-0.5 MG/3 ML Neb Soln INH SCH (22:01)
[2020-05-23] MEDS: Pantoprazole 40 MG Tab.CR PO SCH (22:03)
[2020-05-23] MEDS: Budesonide 0.5 MG/2 ML Neb Susp INH SCH (22:05)
[2020-05-24] MEDS: fentaNYL 100 MCG/2 ML SDV IVPUSH SCH ×2 (05:53→11:40)
[2020-05-24] MEDS: Acetaminophen 325 MG Tab PO PRN ×2 (06:29→14:28)
[2020-05-24] MEDS: Cyclobenzaprine 10 MG Tab PO PRN ×2 (06:29→14:28)
[2020-05-24] MEDS: Levothyroxine 50 MCG Tab PO SCH (06:30)
[2020-05-24] MEDS: Budesonide 0.5 MG/2 ML Neb Susp INH SCH ×2 (07:44→19:31)
[2020-05-24] MEDS: Nystatin Susp 100,000 Unit/ML 5 ML UD Cup PO SCH ×4 (07:44→19:31)
[2020-05-24] MEDS: Albuterol/Ipratropium 3.0-0.5 MG/3 ML Neb Soln INH SCH ×4 (07:44→19:31)
[2020-05-24] MEDS: amLODIPine 10 MG Tab PO SCH (07:45)
[2020-05-24] MEDS: Losartan 25 MG Tab PO SCH (07:45)
[2020-05-24] MEDS: predniSONE 20 MG Tab PO SCH (07:45)
[2020-05-24] MEDS: Pantoprazole 40 MG Tab.CR PO SCH ×2 (07:45→19:31)
[2020-05-24] MEDS: BIFIDOBACTERIUM INFANTIS PO SCH ×2 (10:01→19:31)
[2020-05-24] MEDS: Enoxaparin 40 MG/0.4 ML Syringe SUBCUT SCH (11:19)
[2020-05-24] MEDS ORDERED: fentaNYL 100 MCG/2 ML SDV IVPUSH PRN (12:00)
[2020-05-25] MEDS: Acetaminophen 325 MG Tab PO PRN ×2 (00:35→09:02)
[2020-05-25] MEDS: Cyclobenzaprine 10 MG Tab PO PRN ×2 (00:35→09:02)
[2020-05-25] MEDS: Levothyroxine 50 MCG Tab PO SCH (06:29)
[2020-05-25] MEDS: BIFIDOBACTERIUM INFANTIS PO SCH (08:20)
[2020-05-25] MEDS: predniSONE 20 MG Tab PO SCH (08:20)
[2020-05-25] MEDS: amLODIPine 10 MG Tab PO SCH (08:21)
[2020-05-25] MEDS: Losartan 25 MG Tab PO SCH (08:21)
[2020-05-25] MEDS: Pantoprazole 40 MG Tab.CR PO SCH (08:21)
[2020-05-25] MEDS: Budesonide 0.5 MG/2 ML Neb Susp INH SCH (08:22)
[2020-05-25] MEDS: Albuterol/Ipratropium 3.0-0.5 MG/3 ML Neb Soln INH SCH ×2 (08:22→12:03)
[2020-05-25] MEDS: Nystatin Susp 100,000 Unit/ML 5 ML UD Cup PO SCH ×2 (08:23→12:03)
[2020-05-25] MEDS ORDERED: Azithromycin 250 MG Tab PO SCH (09:00)
[2020-05-25] MEDS ORDERED: Sulfamethoxazole/Trimethoprim 800-160 MG Tab PO SCH (09:00)
--- NOTE | 2020-05-25 11:28 | PCM.DCSUM1 ---
Discharge Summary - Hospital Course Free Text/Narrative:: Helen has showed great improvement while in the hospital. Physical therapy has been working with Helen and she has been meeting all milestones. PT has worked with Helen in regards to transitioning to home with steps, etc.. Helen verbalizes she feels safe going home and doesn't feel she will have any setbacks. Pain has been well controlled with Tylenol and Flexeril for spasms. Diagnosis: Stroke: No - Discharge Data Discharge Date: 05/25/20 Discharge Disposition: Home, W Home Health Agency 06 Condition: Good - Referral to Home Health Date of Face to Face Encounter: 05/25/20 Reason for Homebound Status: Inability to drive due to pelvic fracture with limited ambulation. Advise no driving. Primary Care Physician: Lauro Gregg MD Skilled Need: Physical therapy for strengthening - Discharge Diagnosis/Problem(s) (1) Fracture of pelvis SNOMED Code(s): 03817146 ICD Code: S32.9XXA - FRACTURE OF UNSP PARTS OF LUMBOSACRAL SPINE AND PELVIS, INIT Status: Acute Priority: High Current Visit: No - Patient Summary/Data Consults: Consultations 05/23/20 20:36 PT Evaluation and Treatment [CONS] Routine - Patient Instructions Diet: Usual Diet as Tolerated Activity: Partial Weight Bearing Driving: Do Not Drive Showering/Bathing: May Shower Notify Provider of: Increased Pain - Discharge Plan *PRESCRIPTION DRUG MONITORING PROGRAM REVIEWED*: Not Applicable Prescriptions/Med Rec: Cyclobenzaprine [Flexeril] 10 mg PO Q6H PRN #30 PRN Reason: Spasms Nystatin [Mycostatin] 5 ml PO QID #200 ml Home Medications: Home Meds Azithromycin 500 mg PO MOWEFR 08/05/19 [History] Butalb/Acetaminophen/Caffeine [Noxelo-Rjmdfjps-Hrsg 50-300-40] 1 each PO TID PRN 08/05/19 [History] Levothyroxine 75 mcg PO ACBREAKFAST 08/05/19 [History] Losartan [Cozaar] 25 mg PO DAILY 08/05/19 [History] Omeprazole Magnesium [Prilosec Otc] 40 mg PO BID 08/05/19 [History] Sulfamethoxazole/Trimethoprim [Bactrim Ds Tablet] 1 tab PO MOWEFR 08/05/19 [History] predniSONE [Prednisone] 40 mg PO DAILY 08/05/19 [History] Albuterol/Ipratropium [DuoNeb 3.0-0.5 MG/3 ML] 1 inh INH Q4H PRN 05/20/20 [History] Albuterol/Ipratropium [DuoNeb 3.0-0.5 MG/3 ML] 1 inh INH QID 05/20/20 [History] Bifidobacterium Infantis [Align] 10.5 mg PO BID 05/20/20 [History] Budesonide [Pulmicort] 1 inh PO BID 05/20/20 [History] Furosemide 20 mg PO DAILY PRN 05/20/20 [History] amLODIPine [Norvasc] 5 mg PO DAILY 05/20/20 [History] Cyclobenzaprine [Flexeril] 10 mg PO Q6H PRN #30 05/25/20 [Rx] Nystatin [Mycostatin] 5 ml PO QID #200 ml 05/25/20 [Rx] Patient Handouts: Simple Pelvic Fracture, Adult Referrals: Lauro Gregg MD [Primary Care Provider] - (2 weeks) - Discharge Summary/Plan Comment DC Time >30 min.: Yes Discharge Summary/Plan Comment: Will discharge home. Has close family assistance with who resides at home with her. Will get home PT for continued strengthening and ambulation. - General Info Date of Service: 05/25/20 Admission Dx/Problem (Free Text: Pelvic fracture Functional Status: Reports: Pain Controlled, Tolerating Diet, Ambulating - Review of Systems General: Reports: No Symptoms HEENT: Reports: No Symptoms Pulmonary: Reports: No Symptoms Cardiovascular: Reports: No Symptoms Gastrointestinal: Reports: No Symptoms Genitourinary: Reports: No Symptoms Musculoskeletal: Reports: Other (light pain to right posterior buttocks, improving) Skin: Reports: No Symptoms Neurological: Reports: No Symptoms Psychiatric: Reports: No Symptoms - Patient Data Vitals - Most Recent: Last Vital Signs Temp 97.6 F 05/25/20 08:00 Pulse 82 05/25/20 08:00 Resp 18 05/25/20 08:00 BP 147/79 H 05/25/20 08:21 Pulse Ox 99 05/25/20 08:00 Weight - Most Recent: 151 lb Med Orders - Current: Current Medications Acetaminophen (Tylenol) 650 mg PO Q4H PRN PRN Reason: Pain (Mild 1-3)/fever Last Admin: 05/25/20 09:02 Dose: 650 mg Documented by: Albuterol/Ipratropium (Duoneb 3.0-0.5 Mg/3 Ml) 3 ml INH Q4H PRN PRN Reason: Shortness of Breath Albuterol/Ipratropium (Duoneb 3.0-0.5 Mg/3 Ml) 3 ml INH QIDRT [facility] Last Admin: 05/25/20 08:22 Dose: 3 ml Documented by: Amlodipine Besylate (Norvasc) 5 mg PO DAILY [facility] Last Admin: 05/25/20 08:21 Dose: 5 mg Documented by: Azithromycin (Zithromax) 500 mg PO MoWeFr@0900 [facility] Last Admin: 05/25/20 08:20 Dose: 500 mg Documented by: Budesonide (Pulmicort) 0.25 mg INH BIDRT [facility] Last Admin: 05/25/20 08:22 Dose: 0.25 mg Documented by: Cyclobenzaprine HCl (Flexeril) 10 mg PO TID PRN PRN Reason: Spasms Last Admin: 05/25/20 09:02 Dose: 10 mg Documented by: Enoxaparin Sodium (Lovenox) 40 mg SUBCUT Q24H [facility] Last Admin: 05/24/20 11:19 Dose: 40 mg Documented by: Fentanyl (Sublimaze) 25 mcg IVPUSH Q12H PRN PRN Reason: pain Furosemide (Lasix) 20 mg PO DAILY PRN PRN Reason: Edema Levothyroxine Sodium (Synthroid) 75 mcg PO ACBREAKFAST [facility] Last Admin: 05/25/20 06:29 Dose: 75 mcg Documented by: Losartan Potassium (Cozaar) 25 mg PO DAILY [facility] Last Admin: 05/25/20 08:21 Dose: 25 mg Documented by: Bifidobacterium Infantis [Align] Capsule Ptom 1 cap PO BID [facility] Last Admin: 05/25/20 08:20 Dose: 1 cap Documented by: Nystatin (Mycostatin) 5 ml PO QID [facility] Last Admin: 05/25/20 08:23 Dose: 5 ml Documented by: Ondansetron HCl (Zofran Odt) 4 mg PO Q4H PRN PRN Reason: nausea, able to take PO Pantoprazole Sodium (Protonix) 40 mg PO BID [facility] Last Admin: 05/25/20 08:21 Dose: 40 mg Documented by: Polyethylene Glycol (Miralax) 17 gm PO DAILY PRN PRN Reason: Constipation Last Admin: 05/23/20 21:12 Dose: 17 gm Documented by: Prednisone (Prednisone) 40 mg PO DAILY [facility] Last Admin: 05/25/20 08:20 Dose: 40 mg Documented by: Sodium Chloride (Saline Flush) 10 ml FLUSH ASDIRECTED PRN PRN Reason: Keep Vein Open Trimethoprim/Sulfamethoxazole (Septra Ds) 1 tab PO MoWeFr@0900 [facility] Last Admin: 05/25/20 08:18 Dose: 1 tab Documented by: Discontinued Medications Fentanyl (Sublimaze) 25 mcg IVPUSH Q12H [facility] Last Admin: 05/24/20 11:40 Dose: Not Given Documented by: Sodium Chloride (Saline Flush) 10 ml FLUSH ASDIRECTED PRN PRN Reason: Keep Vein Open - Exam Quality Assessment: Reports: Supplemental Oxygen General: Reports: Alert, Oriented, Cooperative, No Acute Distress Lungs: Reports: Rhonchi (known intersitial lung disease). Denies: Wheezing Cardiovascular: Reports: Regular Rate, Regular Rhythm GI/Abdominal Exam: Normal Bowel Sounds, Soft, Non-Tender Extremities: Limited Range of Motion (ROM significantly improved since admission, mild tenderness with palpation of right groin) Skin: Reports: Warm, Dry, Intact
[2020-05-25] MEDS: Enoxaparin 40 MG/0.4 ML Syringe SUBCUT SCH (12:02)
== END 2020-05-25 15:00 | disposition home health service (06) | DRG 948 ==
LOC: CC.MS 17:59 → UNDOADMIN 17:59 → CC.MS 20:36
PROVIDERS: ADMIT Physician Assistant Medical; ATTEND Family Medicine
DX: G89.11 Acute pain due to trauma (principal); J84.9 Interstitial pulmonary disease, unspecified; S32.9XXS Fracture of unspecified parts of lumbosacral spine and pelvis, sequela; Z79.2 Long term (current) use of antibiotics; Z79.890 Hormone replacement therapy; Z79.52 Long term (current) use of systemic steroids; Z79.51 Long term (current) use of inhaled steroids; Z99.81 Dependence on supplemental oxygen; W19.XXXA Unspecified fall, initial encounter; Y93.9 Activity, unspecified; Y92.9 Unspecified place or not applicable; Y99.9 Unspecified external cause status; Z88.8 Allergy status to other drugs, medicaments and biological substances; Z88.5 Allergy status to narcotic agent; Z88.0 Allergy status to penicillin; Z88.6 Allergy status to analgesic agent; Z88.1 Allergy status to other antibiotic agents; Z20.828 Contact with and (suspected) exposure to other viral communicable diseases
CPT/HCPCS: 94640; 97164-GP; 97530-GP; A9270-GY; J1650; J7512; J7620-GY

== ENCOUNTER 2024-07-18 15:12 | Emergency (ER) | payer MEDICARE, OTHER ==
[2024-07-18 15:29] LABS: APPEARANCE,URINE SLIGHTLY CLOUDY (CLEAR); BILIRUBIN,URINE NEGATIVE (NEGATIVE); COLOR,URINE YELLOW (YELLOW); GLUCOSE,URINE NEGATIVE (NEGATIVE); KETONES,URINE NEGATIVE (NEGATIVE); LEUKOCYTE ESTERASE,URINE SMALL (NEGATIVE); NITRITE,URINE NEGATIVE (NEGATIVE); OCCULT BLOOD,URINE LARGE (NEGATIVE); PROTEIN,URINE NEGATIVE (NEGATIVE); UROBILINOGEN,URINE 0.2 EU/dL (0.2-1.0)
[2024-07-18 15:51] LABS: BACTERIA,URINE FEW /HPF (NOT SEEN); EPITHELIAL CELLS,URINE FEW /HPF (NOT SEEN); RBC,URINE 50-75 /HPF (0-5); WBC CLUMPS,URINE FEW /HPF (NOT SEEN)
== END 2024-07-18 16:04 | disposition home or self-care (01) ==
LOC: CC.ED 15:12
DX: N39.0 Urinary tract infection, site not specified (principal); I10 Essential (primary) hypertension; E03.9 Hypothyroidism, unspecified; Z90.49 Acquired absence of other specified parts of digestive tract; Z87.891 Personal history of nicotine dependence; Z79.899 Other long term (current) drug therapy; Z79.890 Hormone replacement therapy; Z88.8 Allergy status to other drugs, medicaments and biological substances; Z88.5 Allergy status to narcotic agent; Z88.1 Allergy status to other antibiotic agents
CPT/HCPCS: 81001; 87086; 99283; 99284

== ENCOUNTER 2025-06-24 19:19 | Inpatient (IN) | payer MEDICARE, OTHER ==
[2025-06-24] MEDS: fentaNYL 50 MCG/ML SDV IVPUSH ONE (19:44)
[2025-06-24 20:38] LABS: GLUCOSE,URINE NEGATIVE (NEGATIVE); OCCULT BLOOD,URINE MODERATE (NEGATIVE)
[2025-06-24 20:40] LABS: BASOPHILS ABSOLUTE AUTO 0.03 10^3/uL (0.00-0.50); BASOPHILS PERCENT AUTO 0.2 % (0-1); EOSINOPHILS ABSOLUTE AUTO 0.17 10^3/uL (0.00-1.50); EOSINOPHILS PERCENT AUTO 1.2 % (0-6); IMMATURE GRAN ABSOLUTE AUTO 0.08 10^3/uL (0.00-0.49); IMMATURE GRAN PERCENT AUTO 0.6 % (0.0-4.9); LYMPHOCYTES ABSOLUTE AUTO 1.43 10^3/uL (0.60-5.00); LYMPHOCYTES PERCENT AUTO 10.1 % (24-44); MONOCYTES ABSOLUTE AUTO 1.09 10^3/uL (0.00-1.50); MONOCYTES PERCENT AUTO 7.7 % (0-10); NEUTROPHILS ABSOLUTE AUTO 11.33 x10^3/uL (1.80-8.00); NEUTROPHILS PERCENT AUTO 80.2 % (41-71); PLATELET COUNT,PLT 205 10^3/uL (150-400); RED BLOOD CELL COUNT 3.55 x10^6/uL (4.00-5.50); WHITE BLOOD CELL COUNT,WBC 14.1 10^3/uL (4.0-11.0)
[2025-06-24 20:42] LABS: APPEARANCE,URINE SLIGHTLY CLOUDY (CLEAR)
[2025-06-24 20:43] LABS: EPITHELIAL CELLS,URINE NOT SEEN /HPF (NOT SEEN)
[2025-06-24 20:52] LABS: ALANINE AMINOTRANSFERASE,ALT 25.0 U/L (12-78); ASPARTATE AMNIOTRANSFERASE,AST 21.0 U/L (15-37); BILIRUBIN TOTAL 0.2 mg/dL (0.0-1.0); BLOOD UREA NITROGEN,BUN 17.0 mg/dL (7-18); CARBON DIOXIDE,CO2 31.0 mmol/L (21-32); CHLORIDE,CL 95.0 mEq/L (98-106); CREATININE 0.9 mg/dL (0.6-1.0); EST CRCL DRUG DOSING (CG) 37.0 mL/min; ESTIMATED GFR 65.0 mL/min (>=60); GLUCOSE RANDOM 121.0 mg/dL (75-99); POTASSIUM,K 4.1 mEq/L (3.5-5.0); PROTEIN TOTAL,TP 6.5 g/dL (6.4-8.2); SODIUM,NA 136.0 mEq/L (136-145)
[2025-06-24] MEDS ORDERED: [UNRECOGNIZED DRUG - OTHER] PO PRN (23:11)
[2025-06-24] MEDS ORDERED: ACETAMINOPHEN PO PRN (23:11)
[2025-06-24] MEDS ORDERED: CAFFEINE PO PRN (23:11)
[2025-06-24] MEDS ORDERED: BUTALB PO PRN (23:11)
[2025-06-24] MEDS: fentaNYL 50 MCG/ML SDV IVPUSH PRN (23:30)
[2025-06-25] MEDS ORDERED: BUTALB PO PRN (00:23)
[2025-06-25] MEDS ORDERED: CAFFEINE PO PRN (00:23)
[2025-06-25] MEDS ORDERED: [UNRECOGNIZED DRUG - OTHER] PO PRN (00:23)
[2025-06-25] MEDS ORDERED: ACETAMINOPHEN PO PRN (00:23)
[2025-06-25 07:20] LABS: BLOOD UREA NITROGEN,BUN 17.0 mg/dL (7-18); CARBON DIOXIDE,CO2 31.0 mmol/L (21-32); CHLORIDE,CL 97.0 mEq/L (98-106); CREATININE 0.6 mg/dL (0.6-1.0); EST CRCL DRUG DOSING (CG) 55.51 mL/min; GLUCOSE RANDOM 126.0 mg/dL (75-99); POTASSIUM,K 4.0 mEq/L (3.5-5.0); SODIUM,NA 134.0 mEq/L (136-145)
[2025-06-25 07:37] LABS: BASOPHILS ABSOLUTE AUTO 0.03 10^3/uL (0.00-0.50); BASOPHILS PERCENT AUTO 0.3 % (0-1); EOSINOPHILS ABSOLUTE AUTO 0.04 10^3/uL (0.00-1.50); EOSINOPHILS PERCENT AUTO 0.4 % (0-6); ESTIMATED GFR 92.0 mL/min (>=60); IMMATURE GRAN ABSOLUTE AUTO 0.02 10^3/uL (0.00-0.49); IMMATURE GRAN PERCENT AUTO 0.2 % (0.0-4.9); LYMPHOCYTES ABSOLUTE AUTO 1.63 10^3/uL (0.60-5.00); LYMPHOCYTES PERCENT AUTO 17.9 % (24-44); MONOCYTES ABSOLUTE AUTO 0.96 10^3/uL (0.00-1.50); MONOCYTES PERCENT AUTO 10.5 % (0-10); NEUTROPHILS ABSOLUTE AUTO 6.43 x10^3/uL (1.80-8.00); NEUTROPHILS PERCENT AUTO 70.7 % (41-71); PLATELET COUNT,PLT 202 10^3/uL (150-400); RED BLOOD CELL COUNT 3.20 x10^6/uL (4.00-5.50); WHITE BLOOD CELL COUNT,WBC 9.1 10^3/uL (4.0-11.0)
[2025-06-25] MEDS: Iopamidol 755 Mg/ML 100 ML Bottle IVPUSH ONE (10:41)
[2025-06-25] MEDS ORDERED: Lactated Ringers 1,000 ML IV SCH (12:15)
== END 2025-06-25 14:45 | DRG 563 ==
LOC: CC.ED 19:19 → CC.MS 22:00 → UNDOADMOB 22:00 → CC.MS 06-25 09:58 → INTOOBSV 06-25 10:01 → OBSVTOIN 06-25 10:01 → UNDODISIN 06-25 14:45
PROVIDERS: ADMIT Nurse Practitioner; ATTEND Nurse Practitioner
DX: S42.002A Fracture of unspecified part of left clavicle, initial encounter for closed fracture (principal); S22.42XA Multiple fractures of ribs, left side, initial encounter for closed fracture; M25.512 Pain in left shoulder; M25.552 Pain in left hip; D72.829 Elevated white blood cell count, unspecified; G43.909 Migraine, unspecified, not intractable, without status migrainosus; Z88.0 Allergy status to penicillin; Z88.6 Allergy status to analgesic agent; Z88.5 Allergy status to narcotic agent; Z88.8 Allergy status to other drugs, medicaments and biological substances; Z79.890 Hormone replacement therapy; Z79.899 Other long term (current) drug therapy; Z90.49 Acquired absence of other specified parts of digestive tract; Z98.890 Other specified postprocedural states; I10 Essential (primary) hypertension; E03.9 Hypothyroidism, unspecified; W18.30XA Fall on same level, unspecified, initial encounter
CPT/HCPCS: 36415; 51702; 71045; 71260; 73030-LT; 73562-LT; 74177; 80048; 80053; 81001; 83735; 85025; 85730; 96374; 96376; 99236; 99285-25; A9270-GY; G0378; J3010; Q9967